=== PATIENT | male | born 1995 | race Two or more races ===

== ENCOUNTER 2017-09-06 10:11 | Emergency (ER) | payer OTHER ==
[~2017-09-06] VITALS: Ht 177.8 cm; Wt 59.0 kg
[2017-09-06 10:59] LABS: *BILIRUBIN,URIN NEGATIVE (NEGATIVE); *BLOOD, URINE NEGATIVE (NEGATIVE); *CLARITY,URINE CLEAR (CLEAR); *COLOR,URINE YELLOW (YELLOW); *KETONES,URINE NEGATIVE (NEGATIVE); *PROTEIN,URINE TRACE (NEGATIVE); LEUKOCYTE ESTERASE ,URINE TRACE (NEGATIVE); UGLUCOSE NEGATIVE (NEGATIVE)
[2017-09-06 11:11] LABS: NITRITE, URINE POSITIVE (NEGATIVE)
[2017-09-06 11:12] LABS: BACTERIA,URINE NONE SEEN /HPF (NONE SEEN); MUCUS,URINE MODERATE /LPF (0-FEW); SQUAMOUS EPITHELIAL CELL,UR FEW /HPF (NONE SEEN); WBC,URINE 50-80 /HPF (0-3)
--- NOTE | 2017-09-06 11:16 | NUR ---
Swab collected and sent to LAB.
[2017-09-06] MEDS ORDERED: CEFTRIAXONE 500 MG VIAL IM ONE (11:30)
[2017-09-06] MEDS ORDERED: LIDOCAINE HCL 1% 20 ML VIAL ONE (11:31)
[2017-09-06] MEDS ORDERED: CEFTRIAXONE 500 MG VIAL ONE (11:31)
[2017-09-06 11:51] VITALS: BP 110/61
[2017-09-09 10:16] LABS: *GC NAA Negative (Negative); *TRIC.VAG. NAA Negative (Negative)
== END 2017-09-06 11:52 | disposition home or self-care (01) ==
LOC: ER 10:11
DX: N39.0 Urinary tract infection, site not specified (principal); Z88.0 Allergy status to penicillin
CPT/HCPCS: 87491; A4663; J0696; J3490